=== PATIENT | male | born 1970 | race Caucasian/White ===

== ENCOUNTER 2018-07-07 16:50 | Emergency (ER) | payer BC, OTHER ==
[2018-07-07 17:07] VITALS: BP 138/84
[2018-07-07] MEDS ORDERED: Dexamethasone IV* 4 MG/ML 1 ML (4 MG) PO ONE (17:16)
[2018-07-07] MEDS ORDERED: Clarithromycin TAB* 500 MG PO ONE (17:17)
--- NOTE | 2018-07-07 17:20 | ED ---
Throat Pain/Nasal Congestion - HPI Summary HPI Summary: 47 yr old with two weeks of sore throat and swollen glands anterior superior neck. No fever, no drooling, no change in voice. The patient has seen some white patches on the tonsils. The patient feels his tonsils are swollen as well. He is a non smoker. - History of Current Complaint Chief Complaint: UCGeneralIllness Time Seen by Provider: 07/07/18 17:08 - Allergies/Home Medications Allergies/Adverse Reactions: Allergies Allergy/AdvReac Type Severity Reaction Status Date / Time Penicillins Allergy Rash Verified 07/07/18 17:12 MS Doxycycline [Doxycycline] AdvReac Intermediate See Comment Verified 07/07/18 17:12 doxycycline AdvReac See Comment Verified 07/07/18 17:12 Home Medications: Home Medications Rosuvastatin Calcium [Crestor] 10 mg PO DAILY 07/07/18 [History Confirmed ] PMH/Surg Hx/FS Hx/Imm Hx Cardiovascular History: Reports: Hx Coronary Artery Disease - CHOLESTEROL CONTROL WITH MED Respiratory History: Reports: Other Respiratory Problems/Disorders - HX OF PNEUMONIA 3 YEARS AGO GI History: Reports: Hx Gastroesophageal Reflux Disease - ACID REFLUX MEDS NEEDED Musculoskeletal History: Reports: Hx Bursitis - BILATERAL KNEES, Hx Tendonitis - LEFT SHOULDER Sensory History: Reports: Hx Contacts or Glasses - CONTACTS, WILL WEAR GLASSES DAY OF SURGERY Denies: Hx Hearing Aid Opthamlomology History: Reports: Hx Contacts or Glasses - CONTACTS, WILL WEAR GLASSES DAY OF SURGERY Neurological History: Reports: Hx Headaches - OCCASIONAL - Surgical History Surgery Procedure, Year, and Place: 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 APPEN[place]OMY A CHILD, [facility]. 1997 PILONIDAL CYST REMOVED, [facility]. Left elbow surgery 2017 Hx Anesthesia Reactions: No Infectious Disease History: No Infectious Disease History: Denies: Traveled Outside the [place] in Last 30 Days - Social History Occupation: Employed Full-time Alcohol Use: Occasionally Substance Use Type: Reports: None Smoking Status (MU): Former Smoker Type: Cigarettes Amount Used/How Often: 1 PACK PER WEEK Review of Systems Constitutional: Negative Positive: Sore Throat All Other Systems Reviewed And Are Negative: Yes Physical Exam Triage Information Reviewed: Yes Vital Signs On Initial Exam: Initial Vitals Temp Pulse Resp BP Pulse Ox 97.6 F 73 18 138/84 98 07/07/18 17:03 07/07/18 17:03 07/07/18 17:03 07/07/18 17:03 07/07/18 17:03 Vital Signs Reviewed: Yes Appearance: Positive: Well-Appearing, No Pain Distress Skin: Positive: Warm, Skin Color Reflects Adequate Perfusion Head/Face: Positive: Normal Head/Face Inspection Eyes: Positive: EOMI ENT: Positive: Pharyngeal erythema, TMs normal, Tonsillar swelling - mild, Tonsillar exudate, Uvula midline. Negative: Nasal congestion, Nasal drainage, Muffled voice, Hoarse voice Neck: Positive: Supple, Other: - minimal anterior superior lymphadenopathy. No palpable mass in neck no obvious soft tissue swelling. Respiratory/Lung Sounds: Positive: Clear to Auscultation, Breath Sounds Present Cardiovascular: Positive: RRR. Negative: Murmur Abdomen Description: Negative: Distended Musculoskeletal: Positive: Strength/ROM Intact Neurological: Positive: Sensory/Motor Intact, Alert, Oriented to Person Place, Time, CN Intact II-III Psychiatric: Positive: Normal Diagnostics - Vital Signs Vital Signs Temp Pulse Resp BP Pulse Ox 07/07/18 17:03 97.6 F 73 18 138/84 98 - Laboratory Lab Statement: Any lab studies that have been ordered have been reviewed, and results considered in the medical decision making process. EENT Course/Dx - Course Course Of Treatment: 47 yr old with tonsillitis. Giving dose of decadron here, and script for biaxin. FU with PMD for BP and referral to ENT for further eval/ reeval/questions. - Diagnoses Provider Diagnoses: Tonsillitis Discharge - Sign-Out/Discharge Documenting (check all that apply): Patient Departure All imaging exams completed and their final reports reviewed: No Studies - Discharge Plan Condition: Good Disposition: HOME Prescriptions: Clarithromycin TAB* [Biaxin 500 MG TAB*] 500 mg PO BID #20 tab Patient Education Materials: Tonsillitis (ED), Hypertension (ED) Referrals: Adriane Parker MD [Primary Care Provider] - 2 Days Tim Ragsdale MD [Medical Doctor] - 2 Days - Billing Disposition and Condition Condition: GOOD Disposition: Home
== END 2018-07-07 17:27 | disposition home or self-care (01) ==
LOC: UCCORT 16:50
DX: J03.90 Acute tonsillitis, unspecified (principal); Z88.0 Allergy status to penicillin; Z88.1 Allergy status to other antibiotic agents; I25.10 Atherosclerotic heart disease of native coronary artery without angina pectoris; K21.9 Gastro-esophageal reflux disease without esophagitis; Z87.891 Personal history of nicotine dependence
CPT/HCPCS: 87651; 99212; A9270-GY; G0463; J1100